=== PATIENT | female | born 1990 | race African-American/Black ===

== ENCOUNTER 2017-07-05 11:38 | Emergency (ER) | payer OTHER | END 2017-07-05 14:30 | disposition home or self-care (01) | LOC: FTE 11:38 | DX: T24.031A Burn of unspecified degree of right lower leg, initial encounter (principal); X12.XXXA Contact with other hot fluids, initial encounter; Y92.9 Unspecified place or not applicable | CPT/HCPCS: 99283; Z7502 ==